=== PATIENT | female | born 2000 | race American Indian/Alaskan Native ===

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

== ENCOUNTER 2018-02-09 10:44 | Outpatient (CLI) | payer MEDICAID ==
[2018-02-09 12:52] LABS: Bacteria,Urine 1+ /HPF (Negative); Bilirubin,Urine NEG (Negative); Blood,Urine NEG (Negative); Color,Urine Straw (Yellow); Mucus,Urine FEW /HPF; Protein,Urine <15 mg/dL mg/dL (Negative); Urobilinogen,Urine < 2.0 mg/dL (<2.0)
[2018-02-09] MEDS ORDERED: LACTATED RINGERS 1,000 ML IV ONE (13:02)
== END 2018-02-09 15:47 | disposition home or self-care (01) ==
LOC: TRG 10:44
PROVIDERS: ATTEND Obstetrics & Gynecology
DX: O47.02 False labor before 37 completed weeks of gestation, second trimester (principal); Z3A.26 26 weeks gestation of pregnancy
CPT/HCPCS: 59025; 81001; J7120

== ENCOUNTER 2018-03-22 10:28 | Outpatient (CLI) | payer MEDICAID ==
[2018-03-22] MEDS ORDERED: LACTATED RINGERS 500 ML IV ONE (10:36)
--- NOTE | 2018-03-22 12:22 | Ultrasound Report ---
BIOPHYSICAL PROFILE: INDICATION: well being, IUGR. COMPARISON: None similar. TECHNIQUE: Transabdominal ultrasound with Doppler interrogation. 2 - breathing movements 2 - movements 2 - posture and tone 2 - Qualitative amniotic fluid volume 8 - TOTAL SCORE OF POSSIBLE 8 Heart Rate (bpm) 136 CONCLUSION: Findings, as above.
--- NOTE | 2018-03-22 12:24 | Ultrasound Report ---
ULTRASOUND OB VELOCIMETRY UMBILICAL ARTERY: HISTORY: well-being, IUGR. COMPARISON: None similar. FINDINGS: Transabdominal imaging with spectral Doppler interrogation. 3 separate segments of the cord were evaluated. heart rate measures 139 beats per minute. Free loop S/D ratio in the examined loops are 3.34, and 3.57 and 3.97 with average S/D ratio = 3.63. Normal waveform. Flow pattern is persistent. Free loop RI in the examined loops are 0.7, 0.72 and 0.75 with average RI= 0.72. Normal waveform. Flow pattern is persistent. CONCLUSION: Normal and persistent spectral waveforms are demonstrated throughout. The S/D ratio average measures 3.63. The resistive index average measures 0.72. Thank you for the opportunity to participate in this patient's care.
[2018-03-22 13:37] VITALS: BP 115/78
== END 2018-03-22 12:20 | disposition home or self-care (01) ==
LOC: TRG 10:28
PROVIDERS: ATTEND Obstetrics & Gynecology
DX: O47.03 False labor before 37 completed weeks of gestation, third trimester (principal); Z3A.32 32 weeks gestation of pregnancy
CPT/HCPCS: 59025; 76819; 76820

== ENCOUNTER 2018-04-12 15:05 | Outpatient (CLI) | payer MEDICAID ==
[2018-04-12] MEDS ORDERED: LACTATED RINGERS 500 ML IV ONE (15:29)
[2018-04-12 17:01] LABS: Bilirubin,Urine NEG (Negative); Blood,Urine NEG (Negative); Color,Urine Yellow (Yellow); Protein,Urine <15 mg/dL mg/dL (Negative); Urobilinogen,Urine < 2.0 mg/dL (<2.0)
[2018-04-12 17:13] VITALS: BP 109/56
--- NOTE | 2018-04-12 20:04 | Ultrasound Report ---
FINAL REPORT EXAM: US OB FOLLOW UP HISTORY: well being TECHNIQUE: Ultrasound obstetrical PRIORS: Comparison is dated November 10, 2017 FINDINGS: Single live intrauterine gestation is present in cephalic position The placenta is posterior and right Amniotic fluid is within limits amniotic fluid index 10.9 centimeters biometric measurements were obtained Biparietal diameter 33 weeks 3 days Head circumference 35 weeks 3 days abdominal circumference 33 weeks 0 days Femur length 32 weeks 5 days Composite gestational age today is 33 weeks 5 days Based on today's exam estimated weight is 2140 grams Growth percentile 80 percent IMPRESSION: Single live intrauterine gestation as described above
--- NOTE | 2018-04-12 20:04 | Ultrasound Report ---
FINAL REPORT EXAM: US OB BPP WO NON-STRESS HISTORY: well being TECHNIQUE: Ultrasound biophysical profile PRIORS: None. FINDINGS: Single live intrauterine gestation is present Biophysical profile was performed respiratory motion 2 Body movement 2 tone 2 Amniotic fluid volume 2 Total 05/12 Impression Normal biophysical profile 05/12
== END 2018-04-12 20:15 | disposition home or self-care (01) ==
LOC: TRG 15:05
PROVIDERS: ATTEND Obstetrics & Gynecology
DX: O47.03 False labor before 37 completed weeks of gestation, third trimester (principal); Z3A.33 33 weeks gestation of pregnancy
CPT/HCPCS: 59025; 76816; 76819; 81001; 96360; J7120

== ENCOUNTER 2018-05-04 15:42 | Inpatient (IN) | payer MEDICAID ==
[2018-05-04] MEDS ORDERED: LACTATED RINGERS 1,000 ML ONE (17:27)
[2018-05-04 18:47] LABS: Basophils # (Auto) 0.1 K/mm3 (0.0-0.1); Basophils % (Auto) 0.9 % (0.0-1.8); Eosinophils % (Auto) 0.1 % (0.0-4.3); Hematocrit 35.5 % (30.3-42.9); Hemoglobin 11.4 gm/dl (10.1-14.3); Lymphocytes % (Auto) 25.5 % (13.4-35.0); Mean Corpuscular HGB Conc 32 % (30-34); Mean Corpuscular Hemoglobin 26 pg (28-32); Mean Corpuscular Volume 81 fl (79-97); Monocytes # (Auto) 0.5 K/mm3 (0.0-0.8); Monocytes % (Auto) 6.8 % (0.0-7.3); Platelet Count 251 K/mm3 (140-440); Red Blood Count 4.36 M/mm3 (3.65-5.03)
[2018-05-04] MEDS ORDERED: PHENERGAN PR PRN (20:26)
[2018-05-04] MEDS ORDERED: NUBAIN IV PRN (20:26)
[2018-05-04] MEDS ORDERED: ZOFRAN IV PRN (20:26)
[2018-05-04] MEDS ORDERED: BRETHINE SUB-Q PRN (20:26)
[2018-05-04] MEDS ORDERED: ePHEDrine SULFATE IV PRN (20:26)
[2018-05-04] MEDS ORDERED: MINERAL OIL PO PRN (20:26)
[2018-05-04] MEDS ORDERED: STADOL IV PRN (20:26)
[2018-05-04] MEDS ORDERED: CERVIDIL VG ONE (20:26)
[2018-05-04] MEDS ORDERED: BRETHINE IVP PRN (20:26)
[2018-05-04] MEDS ORDERED: NARCAN 0.4 MG/1 ML IV PRN (20:26)
[2018-05-04] MEDS ORDERED: XYLOCAINE 2% INFILTRATI ONE (20:26)
[2018-05-04] MEDS ORDERED: LACTATED RINGERS 1,000 ML IV SCH (21:00)
[2018-05-04] MEDS ORDERED: PITOCin/NS 30 UNIT/500ML 30 UNITS/500 ML BAG IV SCH ×2 (21:00)
[2018-05-04] MEDS ORDERED: PITOCin/NS 20 UNIT/1000ML DRIP 20 UNITS/1,000 ML BAG IV SCH (21:00)
[2018-05-05] MEDS: LACTATED RINGERS 1,000 ML IV SCH ×4 (00:02→22:12)
--- NOTE | 2018-05-05 08:01 | History and Physical Report ---
History of Present Illness Date of examination: 05/05/18 Date of admission: 05/04/18 15:42 History of present illness: 17 yo LMP EDC 05/17/18 @ 38.2 weeks presented for admission per [facility] Dr Springer for IUGR ( EFW 4-12 lbs (7%), elevated S/d ratio and decreased KARIEN (9.8cm ). First trimester entry into care at 10 weeks gestation. Seen at [facility] 05/04, last growith scan noted 5lb for EFW and yesterday 4-12oz appreciated. course complicated by hyperemesis with hospital admit, asthma, abnormal quad, and Panorama for T-21, amnio declined. Comang't with [facility]. Following for genetic abnormality and IUGR. Evaluated by [facility] for heart evaluation and structurally normal heart, Normal echocardiogram, Normal LV, RV documented. GBS negative. 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 History: other (genital warts) Social history: no significant social history - Obstetrical History Expected Date of Delivery: 05/17/18 Actual Gestation: 38 Week(s) 2 Day(s) : 1 Medications and Allergies Allergies Allergy/AdvReac Type Severity Reaction Status Date / Time No Known Allergies Allergy Verified 11/09/17 03:23 Home Medications Medication Instructions Recorded Confirmed Last Taken Type Metoclopramide [Reglan] 10 mg PO ACHS 05/04/18 05/04/18 05/03/18 20:00 History Omeprazole 1 caplet PO TID 05/04/18 05/04/18 05/03/18 20:00 History Active Meds: Active Medications Butorphanol Tartrate (Stadol) 2 mg IV Q2H PRN PRN Reason: Pain , Severe (7-10) Ephedrine Sulfate (Ephedrine Sulfate) 10 mg IV Q2M PRN PRN Reason: Hypotension Fentanyl (Sublimaze) 100 mcg IV Q2H PRN PRN Reason: Labor Pain Lactated Ringer's (Lactated Ringers) 1,000 mls @ 125 mls/hr IV DIRECT CHICO Last Admin: 05/05/18 06:01 Dose: 125 mls/hr Oxytocin/Sodium Chloride (Pitocin/Ns 20 Unit/1000ml Drip) 20 units in 1,000 mls @ 125 mls/hr IV DIRECT CHICO Oxytocin/Sodium Chloride (Pitocin/Ns 30 Unit/500ml) 30 units in 500 mls @ 1 mls /hr IV TITR CHICO; Protocol Oxytocin/Sodium Chloride (Pitocin/Ns 30 Unit/500ml) 30 units in 500 mls @ 0 mls /hr IV TITR CHICO; Protocol Last Titration: 05/05/18 06:33 Dose: 4 mls/hr, 4 mls/hr Mineral Oil (Mineral Oil) 30 ml PO QHS PRN PRN Reason: Constipation Nalbuphine HCl (Nubain) 10 mg IV Q2H PRN PRN Reason: Pain, Moderate (4-6) Naloxone HCl (Narcan 0.4 Mg/1 Ml) 0.1 mg IV Q2MIN PRN PRN Reason: Res Rate </= 8 or 02 SAT < 92% Ondansetron HCl (Zofran) 4 mg IV Q8H PRN PRN Reason: Nausea And Vomiting Promethazine HCl (Phenergan) 25 mg ID Q6H PRN PRN Reason: N/V if unable to take po Terbutaline Sulfate (Brethine) 0.25 mg SUB-Q ONCE PRN PRN Reason: Hyperstimulation/Hypertonicity Terbutaline Sulfate (Brethine) 0.25 mg IVP ONCE PRN PRN Reason: Hyperstimulation/Hypertonicity - Vital Signs Vital signs: Vital Signs Pulse Pulse Ox 75 99 05/04/18 16:20 05/04/18 16:20 Temp Pulse Resp BP Pulse Ox 97.3 F L 63 18 122/60 99 05/05/18 03:20 05/05/18 07:35 05/05/18 03:20 05/05/18 07:35 05/05/18 06:08 - Physical Exam Breasts: Positive: deferred Abdomen: Positive: normal appearance, normal bowel sounds Vagina: Positive: normal moisture - Obstetrical FHR: category 1 Uterine Contraction Monitor Mode: External Cervical Dilatation: 1 Cervical Effacement Percentage: 40 station: -4 Uterine Contraction Pattern: Irregular Uterine Tone Measurement Phase: Resting Uterine Contraction Intensity: Moderate Results Result Diagrams: 05/04/18 18:00 Abnormal lab results 05/04/18 Range/Units 18:00 MCH 26 L (28-32) pg All other labs normal. Assessment and Plan A: IUP at term Induction of labor Day 1 Suspected T-21 Absent end flow IUGR Unfavorable Cervix P: Repeat Cervidil
[2018-05-05] MEDS ORDERED: CERVIDIL VG PRN (09:00)
--- NOTE | 2018-05-05 10:14 | Event Note ---
Date: 05/05/18 Late entry. Called to bedside by RN secondary to spontaneous rupture of membranes. FHT Category II tracing. SVE: /2. Low dose pitocin. Continue to monitor maternal and status.
[2018-05-05] MEDS: SUBLIMAZE IV PRN ×4 (12:57→22:07)
[2018-05-05] MEDS ORDERED: ePHEDrine SULFATE IV PRN (23:16)
[2018-05-05] MEDS ORDERED: NARCAN 2 MG/2 ML IV PRN (23:16)
--- NOTE | 2018-05-05 23:17 | Anesthesia Consultation ---
Anesthesia Consult and Med Hx Date of service: 05/05/18 - Airway Anesthetic Teeth Evaluation: Good ROM Head & Neck: Adequate Mental/Hyoid Distance: Adequate Mallampati Class: Class II Intubation Access Assessment: Probably Good - Pulmonary Exam CTA: Yes - Cardiac Exam Cardiac Exam: RRR - Pre-Operative Health Status ASA Pre-Surgery Classification: ASA2 Proposed Anesthetic Plan: Epidural, Spinal - Pulmonary Hx Smoking: No Hx Asthma: No COPD: No Hx Pneumonia: No - Cardiovascular System Hx Hypertension: No - Central Nervous System Hx Seizures: No Hx Psychiatric Problems: No - Endocrine Hx Renal Disease: No Hx End Stage Renal Disease: No Hx Hypothyroidism: No Hx Hyperthyroidism: No - Hematic Hx Anemia: No Hx Sickle Cell Disease: No - Other Systems Hx Alcohol Use: No
--- NOTE | 2018-05-05 23:18 | Anesthesia Day of Surgery ---
Anesthesia Day of Surgery - Day of Surgery Patient Examined: Yes Patient H&P Reviewed: Yes Patient is NPO: Yes
[2018-05-05] MEDS ORDERED: fentaNYL-BUPIV 2 MCG/ML-0.125% 200 MCG/100 ML BAG EPIDURAL SCH (23:45)
[2018-05-06] MEDS ORDERED: POLYCILLIN/NS 2 GM/100 ML 2 GM/100 ML BAG IV SCH (06:00)
[2018-05-06] MEDS ORDERED: REGLAN IV NR (08:00)
[2018-05-06] MEDS ORDERED: BRETHINE SUB-Q ONE ×2 (08:00→21:15)
[2018-05-06] MEDS ORDERED: BICITRA PO NR (08:00)
[2018-05-06] MEDS ORDERED: LACTATED RINGERS 1,000 ML IV SCH (08:00)
[2018-05-06] MEDS ORDERED: BICITRA ONE (08:01)
[2018-05-06] MEDS ORDERED: REGLAN ONE (08:01)
[2018-05-06] MEDS ORDERED: PEPCID IV ONE (08:01)
[2018-05-06] MEDS ORDERED: ANCEF/STERILE WATER 2 GM/20 ML 2 GM/20 ML SYRINGE IV ONE (08:01)
--- NOTE | 2018-05-06 08:15 | Progress Note ---
Assessment and Plan A: IUP at 38+ weeks Failed induction Remote from delivery intolerance to labor Suspected T-21 Prolonged ROM P: Primary section Subjective - Subjective Date of service: 05/06/18 Interval history: 17 yo LMP EDC 05/17/18 @ 38.2 weeks presented for admission per [facility] Dr Springer for IUGR ( EFW 4-12 lbs (7%), elevated S/d ratio and decreased KARINE (9.8cm ). First trimester entry into care at 10 weeks gestation. Seen at [facility] 05/04, last growith scan noted 5lb for EFW and yesterday 4-12oz appreciated. course complicated by hyperemesis with hospital admit, asthma, abnormal quad, and Panorama for T-21, amnio declined. Comang't with [facility]. Following for genetic abnormality and IUGR. Evaluated by [facility] for heart evaluation and structurally normal heart, Normal echocardiogram, Normal LV, RV documented. GBS negative. Patient reports: new complaints (Lower back pain at epidural site and lower abd pressure), loss of fluid, movement normal, contractions, no vaginal bleeding Objective - Vital Signs Vital Signs: Vital Signs - 12hr 05/05/18 05/05/18 05/05/18 21:06 22:07 22:35 Temperature Pulse Rate 68 76 Respiratory 20 Rate Blood Pressure 156/74 127/85 O2 Sat by Pulse Oximetry 05/05/18 05/05/18 05/05/18 23:00 23:01 23:06 Temperature Pulse Rate 87 81 81 Respiratory Rate Blood Pressure O2 Sat by Pulse 86 99 98 Oximetry 05/05/18 05/05/18 05/05/18 23:11 23:16 23:19 Temperature Pulse Rate 85 73 78 Respiratory Rate Blood Pressure 120/59 114/60 O2 Sat by Pulse 98 96 Oximetry 05/05/18 05/05/18 05/05/18 23:21 23:22 23:25 Temperature Pulse Rate 76 76 71 Respiratory Rate Blood Pressure 121/64 112/55 O2 Sat by Pulse 97 Oximetry 05/05/18 05/05/18 05/05/18 23:26 23:28 23:31 Temperature Pulse Rate 63 69 68 Respiratory Rate Blood Pressure 113/59 111/56 O2 Sat by Pulse 99 99 Oximetry 05/05/18 05/05/18 05/05/18 23:34 23:36 23:37 Temperature 98.7 F Pulse Rate 71 69 68 Respiratory Rate Blood Pressure 116/58 116/58 O2 Sat by Pulse 99 Oximetry 05/05/18 05/05/18 05/05/18 23:40 23:41 23:43 Temperature Pulse Rate 66 81 78 Respiratory Rate Blood Pressure 119/58 128/69 O2 Sat by Pulse 99 Oximetry 05/05/18 05/05/18 05/05/18 23:46 23:49 23:51 Temperature Pulse Rate 72 66 56 L Respiratory Rate Blood Pressure 126/67 112/57 O2 Sat by Pulse 99 99 Oximetry 05/05/18 05/05/18 05/05/18 23:52 23:55 23:56 Temperature Pulse Rate 71 57 L 65 Respiratory Rate Blood Pressure 113/59 116/63 O2 Sat by Pulse 99 Oximetry 05/05/18 05/06/18 05/06/18 23:58 00:01 00:04 Temperature Pulse Rate 67 73 65 Respiratory Rate Blood Pressure 118/69 119/65 124/67 O2 Sat by Pulse 98 Oximetry 05/06/18 05/06/18 05/06/18 00:06 00:07 00:10 Temperature Pulse Rate 68 64 68 Respiratory Rate Blood Pressure 126/72 116/64 O2 Sat by Pulse 98 Oximetry 05/06/18 05/06/18 05/06/18 00:11 00:13 00:16 Temperature Pulse Rate 66 71 65 Respiratory Rate Blood Pressure 113/62 109/59 O2 Sat by Pulse 98 98 Oximetry 05/06/18 05/06/18 05/06/18 00:19 00:21 00:22 Temperature Pulse Rate 72 61 71 Respiratory Rate Blood Pressure 132/64 123/65 O2 Sat by Pulse 100 Oximetry 05/06/18 05/06/18 05/06/18 00:25 00:26 00:28 Temperature Pulse Rate 63 68 67 Respiratory Rate Blood Pressure 114/66 118/63 O2 Sat by Pulse 98 Oximetry 05/06/18 05/06/18 05/06/18 00:31 00:34 00:36 Temperature Pulse Rate 69 64 66 Respiratory Rate Blood Pressure 125/70 113/60 O2 Sat by Pulse 99 99 Oximetry 05/06/18 05/06/18 05/06/18 00:37 00:40 00:41 Temperature Pulse Rate 64 67 73 Respiratory Rate Blood Pressure 118/61 120/64 O2 Sat by Pulse 99 Oximetry 05/06/18 05/06/18 05/06/18 00:43 00:46 00:49 Temperature Pulse Rate 72 72 75 Respiratory Rate Blood Pressure 108/67 114/71 120/74 O2 Sat by Pulse 100 Oximetry 05/06/18 05/06/18 05/06/18 00:51 00:52 00:56 Temperature Pulse Rate 67 61 66 Respiratory Rate Blood Pressure 110/62 O2 Sat by Pulse 99 99 Oximetry 05/06/18 05/06/18 05/06/18 01:01 01:03 01:06 Temperature Pulse Rate 68 65 68 Respiratory Rate Blood Pressure 121/57 O2 Sat by Pulse 99 99 Oximetry 05/06/18 05/06/18 05/06/18 01:11 01:16 01:21 Temperature Pulse Rate 69 67 66 Respiratory Rate Blood Pressure 129/63 O2 Sat by Pulse 99 99 97 Oximetry 05/06/18 05/06/18 05/06/18 01:22 01:26 01:31 Temperature Pulse Rate 69 65 69 Respiratory Rate Blood Pressure 121/70 O2 Sat by Pulse 99 98 Oximetry 05/06/18 05/06/18 05/06/18 01:36 01:38 01:41 Temperature Pulse Rate 67 66 67 Respiratory Rate Blood Pressure 121/60 O2 Sat by Pulse 98 98 Oximetry 05/06/18 05/06/18 05/06/18 01:46 01:51 01:52 Temperature Pulse Rate 69 66 67 Respiratory Rate Blood Pressure 119/55 O2 Sat by Pulse 97 98 Oximetry 05/06/18 05/06/18 05/06/18 01:56 02:01 02:06 Temperature Pulse Rate 66 68 65 Respiratory Rate Blood Pressure O2 Sat by Pulse 98 97 98 Oximetry 05/06/18 05/06/18 05/06/18 02:07 02:11 02:16 Temperature Pulse Rate 61 68 66 Respiratory Rate Blood Pressure 126/60 O2 Sat by Pulse 98 99 Oximetry 05/06/18 05/06/18 05/06/18 02:21 02:22 02:26 Temperature Pulse Rate 66 69 66 Respiratory Rate Blood Pressure 123/59 O2 Sat by Pulse 99 98 Oximetry 05/06/18 05/06/18 05/06/18 02:31 02:36 02:38 Temperature Pulse Rate 67 75 67 Respiratory Rate Blood Pressure 126/68 O2 Sat by Pulse 98 98 Oximetry 05/06/18 05/06/18 05/06/18 02:41 02:46 02:51 Temperature Pulse Rate 70 65 66 Respiratory Rate Blood Pressure O2 Sat by Pulse 98 99 99 Oximetry 05/06/18 05/06/18 05/06/18 02:53 02:56 03:01 Temperature Pulse Rate 82 71 70 Respiratory Rate Blood Pressure 117/66 O2 Sat by Pulse 96 99 Oximetry 05/06/18 05/06/18 05/06/18 03:06 03:08 03:11 Temperature Pulse Rate 65 67 68 Respiratory Rate Blood Pressure 116/63 O2 Sat by Pulse 99 99 Oximetry 05/06/18 05/06/18 05/06/18 03:16 03:21 03:22 Temperature Pulse Rate 66 67 78 Respiratory Rate Blood Pressure 118/64 O2 Sat by Pulse 99 99 Oximetry 05/06/18 05/06/18 05/06/18 03:26 03:31 03:36 Temperature Pulse Rate 71 76 79 Respiratory Rate Blood Pressure O2 Sat by Pulse 99 97 97 Oximetry 05/06/18 05/06/18 05/06/18 03:41 03:44 03:46 Temperature Pulse Rate 79 90 82 Respiratory Rate Blood Pressure O2 Sat by Pulse 97 94 96 Oximetry 05/06/18 05/06/18 05/06/18 03:51 03:56 03:58 Temperature Pulse Rate 77 75 71 Respiratory Rate Blood Pressure 110/60 O2 Sat by Pulse 96 96 Oximetry 05/06/18 05/06/18 05/06/18 04:01 04:06 04:11 Temperature Pulse Rate 75 75 82 Respiratory Rate Blood Pressure O2 Sat by Pulse 96 96 99 Oximetry 05/06/18 05/06/18 05/06/18 04:16 04:21 04:26 Temperature Pulse Rate 70 69 70 Respiratory Rate Blood Pressure O2 Sat by Pulse 99 99 99 Oximetry 05/06/18 05/06/18 05/06/18 04:28 04:31 04:36 Temperature Pulse Rate 69 69 68 Respiratory Rate Blood Pressure 117/60 O2 Sat by Pulse 99 99 Oximetry 05/06/18 05/06/18 05/06/18 04:41 04:46 04:51 Temperature Pulse Rate 68 71 71 Respiratory Rate Blood Pressure O2 Sat by Pulse 99 99 99 Oximetry 05/06/18 05/06/18 05/06/18 04:56 04:58 05:01 Temperature Pulse Rate 72 73 68 Respiratory Rate Blood Pressure 122/59 O2 Sat by Pulse 100 99 Oximetry 05/06/18 05/06/18 05/06/18 05:06 05:11 05:16 Temperature Pulse Rate 79 78 74 Respiratory Rate Blood Pressure O2 Sat by Pulse 99 99 99 Oximetry 05/06/18 05/06/18 05/06/18 05:21 05:26 05:29 Temperature Pulse Rate 73 77 75 Respiratory Rate Blood Pressure 130/73 O2 Sat by Pulse 99 98 Oximetry 05/06/18 05/06/18 05/06/18 05:31 05:36 05:41 Temperature Pulse Rate 77 74 69 Respiratory Rate Blood Pressure O2 Sat by Pulse 100 99 100 Oximetry 05/06/18 05/06/18 05/06/18 05:46 05:51 05:56 Temperature Pulse Rate 75 82 79 Respiratory Rate Blood Pressure O2 Sat by Pulse 99 99 99 Oximetry 05/06/18 05/06/18 05/06/18 05:58 06:01 06:06 Temperature Pulse Rate 76 70 78 Respiratory Rate Blood Pressure 130/76 O2 Sat by Pulse 99 99 Oximetry 05/06/18 05/06/18 05/06/18 06:11 06:16 06:21 Temperature Pulse Rate 79 75 74 Respiratory Rate Blood Pressure O2 Sat by Pulse 98 99 100 Oximetry 05/06/18 05/06/18 05/06/18 06:26 06:30 06:31 Temperature Pulse Rate 71 71 76 Respiratory Rate Blood Pressure 121/68 O2 Sat by Pulse 99 100 Oximetry 05/06/18 05/06/18 05/06/18 06:36 06:41 06:46 Temperature Pulse Rate 76 74 76 Respiratory Rate Blood Pressure O2 Sat by Pulse 98 99 99 Oximetry 05/06/18 05/06/18 05/06/18 06:51 06:56 06:58 Temperature Pulse Rate 77 75 71 Respiratory Rate Blood Pressure 122/59 O2 Sat by Pulse 99 99 Oximetry 05/06/18 05/06/18 05/06/18 07:01 07:06 07:11 Temperature Pulse Rate 75 70 74 Respiratory Rate Blood Pressure O2 Sat by Pulse 99 98 99 Oximetry 05/06/18 05/06/18 05/06/18 07:16 07:21 07:26 Temperature Pulse Rate 68 74 79 Respiratory Rate Blood Pressure O2 Sat by Pulse 99 99 99 Oximetry 05/06/18 05/06/18 05/06/18 07:30 07:31 07:36 Temperature Pulse Rate 77 80 74 Respiratory Rate Blood Pressure 141/58 O2 Sat by Pulse 100 99 Oximetry 05/06/18 05/06/18 05/06/18 07:41 07:46 07:51 Temperature Pulse Rate 74 89 87 Respiratory Rate Blood Pressure O2 Sat by Pulse 100 97 97 Oximetry 05/06/18 07:58 Temperature Pulse Rate 75 Respiratory Rate Blood Pressure 103/58 O2 Sat by Pulse Oximetry - Exam Breasts: deferred FHR: category 2 FHR comments: IUPC and FSE placed. Maternal position change for comfort. decel to 70's. 02 placed. Multiple position changes. Poor response. advised plan C/S Uterine Contraction Monitor Mode: External Uterine Contraction Pattern: Irregular Uterine Tone Measurement Phase: Resting Uterine Contraction Intensity: Moderate - Labs Labs: Abnormal Labs 05/04/18 18:00 MCH 26 L Laboratory Results - last 24 hr 05/04/18 18:00 RPR Nonreactive
[2018-05-06] MEDS ORDERED: XYLOCAINE MPF 2% ONE ×4 (08:18→09:02)
[2018-05-06] MEDS ORDERED: NACL 0.9% IR ONE (08:25)
[2018-05-06] MEDS ORDERED: WATER FOR IRRIG STERILE IR ONE (08:25)
[2018-05-06] MEDS ORDERED: DIPRIVAN 10 MG/ML IV ONE (08:28)
[2018-05-06] MEDS ORDERED: PEPCID IV NR (08:30)
[2018-05-06] MEDS ORDERED: PITOCin/NS 20 UNIT/1000ML DRIP 20 UNITS/1,000 ML BAG IV SCH ×2 (08:30→12:21)
[2018-05-06] MEDS ORDERED: METHERGINE IM ONE (08:37)
[2018-05-06] MEDS ORDERED: LACTATED RINGERS 1,000 ML ONE (09:02)
[2018-05-06] MEDS ORDERED: MORPHINE ONE (09:09)
[2018-05-06] MEDS ORDERED: ZOFRAN ONE (09:10)
--- NOTE | 2018-05-06 09:31 | Operative Report ---
Operative Report Operative Report: Date of procedure: May 06, 2018 Preoperative diagnosis: 1) IUP at 38w3d 2) Nonreassuring Tracing- repetitive variable decels 3) Intolerance to Labor 4) IUGR 5) Prolonged ROM Postoperative diagnosis: Same Procedure: Primary low transverse section Surgeon: Christine Dejesus M.D. Anesthesia: Epidural Findings: 1) Viable male , Apgars 8 and 9, weight 2038g, (4 lb 7.8 oz) in vertex presentation 2) Normal-appearing uterus ovaries and tubes Estimated blood loss: 500 mL IV fluids: 1200 mL Urine output: 350 mL, clear at the end of the procedure Drains: Anton to gravity Specimens: Placenta to pathology Complications: None. Counts correct x 3 Medication: Methergine 0.2 mg IM Disposition: Stable to PACU Indication for procedure: Pt is a 17 year old female primigravida at 38w3d who was initially admitted for induction of labor secondary to IUGR and elevated S/D ratio. Over 24 hrs of induction, her cervix changed from 1 to 2 cm, and the heart tracing began to have repetitive variable decels. The decision was made to proceed with delivery. Operation in detail: After the risks, benefits, alternatives and complications were explained to the patient she gave informed consent for the procedure. She was subsequently taken to the operating room where epidural anesthesia was initially inadequate. The patient's epidural was again redosed, and it was then noted to be adequate. She was subsequently placed in the dorsal supine position with leftward tilt and prepped and draped in a normal sterile fashion. heart tones were noted to be in the 120s prior to incision. A timeout was performed. A Pfannenstiel skin incision was made with the knife and carried down to the layer of the fascia with the Bovie. The fascia was incised in the midline and the fascial incision was extended bilaterally with the Bovie. Attention was then turned to the superior aspect of the incision which was grasped with two Kochers, tented up, and dissected off the rectus muscles. Attention was then turned to the inferior aspect of the incision which was grasped with two Kochers , tented up and dissected off the rectus muscles. The rectus muscles were then in the midline. The peritoneum was then entered bluntly. The peritoneal incision was extended with good visualization of the bladder. The peritoneal incision was then stretched. The bladder blade was placed. The vesicouterine peritoneum was grasped with smooth pickups and incised with Metzenbaum scissors. Metzenbaum scissors were used to extend the incision bilaterally. The bladder flap was then created digitally and the bladder blade was replaced. A transverse incision was made in the lower uterine segment with a knife and extended bilaterally with the bandage scissors. The head was delivered without difficulty followed by shoulders and body. was bulb suctioned at delivery. The cord was clamped and cut and the was handed to NICU staff in attendance. Cord blood was collected. The placenta was then delivered manually. The uterus was then exteriorized and cleared of all clots and debris. The uterus was noted to be atonic despite pitocin administration. The patient was given Methergine 0.2 mg IM with improve in uterine tone. The hysterotomy was then reapproximated with 0 Vicryl in a running locked fashion. A second layer of the same suture was used in an imbricating fashion. The hysterotomy was inspected and hemostasis was noted. The gutters were irrigated and cleared of all clots and debris. The hysterotomy was again inspected and noted to be hemostatic. Surgicel was placed over the hysterotomy. The peritoneum was reapproximated with 2-0 Vicryl in a running fashion incorporating the rectus muscles. The fascia was reapproximated with 0 Vicryl in a running fashion. The subcutaneous tissue was reapproximated with 3-0 Vicryl in a running fashion. The skin was reapproximated with 4-0 Vicryl in a subcuticular fashion. The incision was then covered with steri strips and a pressure dressing. The procedure was then ended. The patient tolerated the procedure well and was taken to the PACU in stable condition. All instrument, lap, and needle counts were correct 3.
--- NOTE | 2018-05-06 09:31 | Procedure Note ---
OB Delivery Note - Delivery Date of Delivery: 05/06/18 Surgeon: MONICA OROZCO Estimated blood loss: 500cc - Section Preop diagnosis: nonreassuring FHR tracing Postop diagnosis: same section procedure: section, primary low transverse Disposition: PACU Complications: none Narrative: Please see operative report - A at 1 minute: 8 at 5 minutes: 9 Infant Gender: Male (2038g (4lb 7.8 oz) @ 0829 am)
[2018-05-06] MEDS ORDERED: PHENERGAN PO PRN (10:00)
[2018-05-06] MEDS ORDERED: PHENERGAN PR PRN (10:00)
[2018-05-06] MEDS ORDERED: ZOFRAN IV PRN ×2 (10:00→12:21)
[2018-05-06] MEDS ORDERED: SODIUM CHLORIDE FLUSH SYRINGE 10 ML IV PRN (10:00)
[2018-05-06] MEDS: DILAUDID IV PRN ×4 (10:10→21:07)
[2018-05-06] MEDS ORDERED: DILAUDID ONE (11:03)
[2018-05-06] MEDS: TORADOL IV SCH ×2 (11:24→18:59)
[2018-05-06] MEDS ORDERED: TORADOL IV PRN (12:21)
[2018-05-06] MEDS ORDERED: MILK OF MAGNESIA PO PRN (12:21)
[2018-05-06] MEDS ORDERED: LANSINOH TP PRN (12:21)
[2018-05-06] MEDS ORDERED: TUCKS PAD TP PRN (12:21)
[2018-05-06] MEDS ORDERED: SODIUM CHLORIDE FLUSH SYRINGE 10 ML IV NR (12:21)
[2018-05-06] MEDS ORDERED: NARCAN 0.4 MG/1 ML IV PRN (12:21)
[2018-05-06] MEDS ORDERED: MYLICON PO PRN (12:21)
[2018-05-06] MEDS: D5LR 1,000 ML IV SCH ×2 (14:18→23:20)
[2018-05-06] MEDS: ANCEF/NS 1 GM/50 ML 1 GM/50 ML BAG IV SCH (17:08)
[2018-05-06 21:34] LABS: Hematocrit 29.9 % (30.3-42.9); Hemoglobin 9.6 gm/dl (10.1-14.3)
[2018-05-06] MEDS: PERCOCET 5/325 PO PRN (23:19)
[2018-05-07] MEDS: TORADOL IV SCH ×2 (00:25→06:26)
[2018-05-07] MEDS: PERCOCET 5/325 PO PRN ×3 (03:11→18:06)
[2018-05-07] MEDS: ANCEF/NS 1 GM/50 ML 1 GM/50 ML BAG IV SCH (03:12)
--- NOTE | 2018-05-07 07:39 | Progress Note ---
Assessment and Plan A: POD#1 s/p primary section at term Asymptomatic anemia P: Routine post op care. Subjective - Subjective Date of service: 05/07/18 Principal diagnosis: s/p primary section Interval history: During the day yesterday, the baby was moved to the NICU. No overnight events. Suboptimal pain control. Patient reports: appetite normal, voiding normally, pain poorly controlled, ambulating normally, no flatus, no bowel movement [place]: in NICU Objective - Vital Signs Latest vital signs: Vital Signs Temp Pulse Resp BP BP Pulse Ox 05/07/18 06:26 16 05/07/18 03:11 16 05/07/18 01:35 98.1 F 70 18 124/51 05/07/18 00:25 18 05/06/18 23:19 20 05/06/18 20:19 98.3 F 91 H 20 137/78 05/06/18 19:40 97 H 22 120/69 05/06/18 16:19 97.7 F 91 H 18 125/63 95 05/06/18 12:09 98.6 F 90 16 111/65 96 05/06/18 11:31 95 H 13 124/66 05/06/18 11:25 97 H 11 L 133/64 05/06/18 11:19 96 H 12 132/70 05/06/18 11:13 96 H 19 128/71 05/06/18 11:07 98 H 18 142/73 05/06/18 11:01 103 H 18 134/79 96 05/06/18 10:55 98 H 22 145/81 96 05/06/18 10:49 97 H 11 L 137/82 96 05/06/18 10:43 99 H 17 135/81 96 05/06/18 10:37 97 H 23 137/85 97 05/06/18 10:32 95 H 12 129/84 98 05/06/18 10:30 92 H 20 129/79 100 05/06/18 10:27 93 H 23 131/83 98 05/06/18 10:21 93 H 15 129/78 98 05/06/18 10:15 90 18 129/79 98 05/06/18 10:10 20 05/06/18 10:00 90 25 H 132/73 100 05/06/18 09:50 93 H 17 128/47 05/06/18 09:45 99 H 16 128/50 05/06/18 09:35 97 H 22 120/69 05/06/18 09:31 97.9 F 102 H 17 138/56 05/06/18 09:30 105 H 17 138/56 99 05/06/18 08:48 98.1 F 18 05/06/18 07:58 75 103/58 05/06/18 07:51 87 97 05/06/18 07:46 89 97 05/06/18 07:41 74 100 Intake and Output 05/06/18 05/07/18 05/07/18 22:59 06:59 14:59 Intake Total 1230 Output Total 600 400 Balance 630 -400 Intake: IV 1050 ANCEF/NS 1 GM/50 ML 1 gm 50 In 50 ml @ 100 mls/hr IV Q8H [facility] Rx#:[id number] D5lr 1,000 ml @ 125 mls/ 1000 hr IV DIRECT [facility] Rx#: [id number] Intake, Free Water 180 Output: Urine 600 400 Void 600 400 Other: Intake, Other Source Saline Solution Total, Output Amount 600 400 - Exam Breasts: Present: deferred Cardiovascular: Present: Regular rate Lungs: Present: Clear to auscultation Abdomen: Present: soft Uterus: Present: fundal height at umbilicus Extremities: Present: normal Incision: Present: dressed - Labs Labs: Abnormal lab results 05/06/18 Range/Units 21:07 Hgb 9.6 L (10.1-14.3) gm/dl Hct 29.9 L (30.3-42.9) %
[2018-05-07] MEDS ORDERED: BOOSTRIX IM ONE (09:35)
[2018-05-07] MEDS ORDERED: M-M-R II VACCINE SUB-Q ONE (09:35)
--- NOTE | 2018-05-07 09:50 | Query-Anemia ---
Darrick Kraus____Oleg Date:____05/07/18 Elementary Teacher/CDS:___abhinav Phone#:___[phone] Exercise your independent professional judgment when responding to this query. Questions asked do not imply a particular answer is desired or expected. We greatly appreciate your clarification on this issue. Clinical Documentation States: 17 yo LMP EDC 05/17/18 @ 38.2 weeks presented for admission per [facility] Dr Springer for IUGR ( EFW 4-12 lbs (7%), elevated S/d ratio and decreased KARINE (9.8cm ). Taken from operative report () on 05/06/18. Preoperative diagnosis: 1) IUP at 38w3d 2) Nonreassuring Tracing- repetitive variable decels 3) Intolerance to Labor 4) IUGR 5) Prolonged ROM Postoperative diagnosis: Same Procedure: Primary low transverse section Estimated blood loss: 500 mL Clinical Findings Show: 05/04/18 05/06/18 Hb 11.4 9.6 Hct 35.5 29.9 Etiology: [X ] Anemia due to acute blood loss [ ] Anemia due to chronic blood loss [ ] Anemia secondary to ESRD [ ] Anemia secondary to neoplastic disease [ ] Iron deficiency anemia due to malabsorption [ ] GI Bleed from: [ ] Anemia of chronic disease ,Other: [ ] Precipitous Drop in Hemoglobin [ ] Precipitous Drop in Hematocrit [ ] Other: [ ] Unable to determine [ ] Comment/Explanation: Present on Admission: [ ] Yes (Y) [ ] Clinically undeterminable (W) [X ] No (N) Please also document response in your Progress Notes and/or Discharge Summary and indicate if the condition was present on admission. MTDD
[2018-05-07] MEDS: MILK OF MAGNESIA PO SCH (10:11)
[2018-05-07] MEDS: MOTRIN PO PRN (18:05)
[2018-05-07] MEDS: BENADRYL IV PRN (19:27)
[2018-05-07] MEDS: CLARITIN PO SCH (22:24)
[2018-05-08] MEDS: MOTRIN PO PRN ×4 (01:18→23:56)
[2018-05-08] MEDS: MILK OF MAGNESIA PO SCH ×4 (01:18→22:12)
[2018-05-08] MEDS: BENADRYL IV PRN (04:37)
[2018-05-08] MEDS: PERCOCET 5/325 PO PRN ×4 (04:38→22:08)
[2018-05-08] MEDS: TORADOL IV SCH ×2 (06:13)
[2018-05-08] MEDS: CLARITIN PO SCH (10:24)
--- NOTE | 2018-05-08 12:48 | Progress Note ---
Assessment and Plan O: VSS Af PP H/H:11.3/32.8 A: Stable POD #2 P: Continue routine PP orders Subjective - Subjective Date of service: 05/08/18 Principal diagnosis: s/p primary section Interval history: 17 yo LMP EDC 05/17/18 @ 38.2 weeks presented for admission per [facility] Dr Springer for IUGR ( EFW 4-12 lbs (7%), elevated S/d ratio and decreased KARINE (9.8cm ). First trimester entry into care at 10 weeks gestation. Seen at [facility] 05/04, last growith scan noted 5lb for EFW and yesterday 4-12oz appreciated. course complicated by hyperemesis with hospital admit, asthma, abnormal quad, and Panorama for T-21, amnio declined. Comang't with [facility]. Following for genetic abnormality and IUGR. Evaluated by [facility] for heart evaluation and structurally normal heart, Normal echocardiogram, Normal LV, RV documented. GBS negative. Patient reports: appetite normal, voiding normally, pain well controlled, flatus , ambulating normally, other (c/o incision burning) : doing well, in NICU (low BS) Objective - Vital Signs Latest vital signs: Vital Signs Temp Pulse Resp BP BP Pulse Ox 05/08/18 07:42 97.8 F 72 18 112/55 97 05/08/18 06:13 18 05/08/18 05:38 18 05/08/18 04:38 18 05/08/18 04:00 98.4 F 67 18 114/78 05/08/18 02:18 18 05/08/18 01:18 18 05/08/18 00:00 98.7 F 67 16 121/73 05/07/18 20:27 98.2 F 85 18 123/63 05/07/18 19:06 18 05/07/18 19:05 18 05/07/18 18:28 98.1 F 83 18 120/67 96 05/07/18 18:06 20 05/07/18 18:05 20 05/07/18 13:32 98.0 F 79 18 118/64 98 Intake and Output 05/07/18 05/08/18 05/08/18 22:59 06:59 14:59 Intake Total 365 600 665 Balance 365 600 665 Intake: IV 125 125 Left Hand 125 125 Oral 380 Intake, Free Water 240 600 160 Other: Total, Intake Amount 380 # Voids Void 1 1 - Exam Breasts: Present: deferred Abdomen: Present: normal appearance, soft Uterus: Present: normal, firm, fundal height below umbilicus. Absent: bogginess Extremities: Present: normal
[2018-05-09] MEDS: MOTRIN PO PRN (05:37)
[2018-05-09] MEDS: PERCOCET 5/325 PO PRN ×3 (09:00→19:50)
[2018-05-09] MEDS: MILK OF MAGNESIA PO SCH ×2 (09:00→14:08)
[2018-05-09] MEDS: CLARITIN PO SCH (09:00)
[2018-05-09] MEDS: TORADOL IV SCH ×2 (12:00→18:58)
--- NOTE | 2018-05-09 15:58 | Progress Note ---
Assessment and Plan O: VSS AF A: stable POD #4 Anemia p: D/C am Subjective - Subjective Date of service: 05/09/18 Principal diagnosis: s/p primary section Interval history: 17 yo LMP EDC 05/17/18 @ 38.2 weeks presented for admission per [facility] Dr Springer for IUGR ( EFW 4-12 lbs (7%), elevated S/d ratio and decreased KARINE (9.8cm ). First trimester entry into care at 10 weeks gestation. Seen at [facility] 05/04, last growith scan noted 5lb for EFW and yesterday 4-12oz appreciated. course complicated by hyperemesis with hospital admit, asthma, abnormal quad, and Panorama for T-21, amnio declined. Comang't with [facility]. Following for genetic abnormality and IUGR. Evaluated by [facility] for heart evaluation and structurally normal heart, Normal echocardiogram, Normal LV, RV documented. GBS negative. Patient reports: appetite normal, voiding normally, pain well controlled, flatus , ambulating normally [place]: doing well, in NICU Objective - Vital Signs Latest vital signs: Vital Signs Temp Pulse Resp BP BP Pulse Ox 05/09/18 07:47 98.2 F 68 18 122/63 97 05/09/18 01:00 98 F 74 18 114/79 05/08/18 16:21 98.4 F 75 18 107/84 98 Intake and Output 05/09/18 05/09/18 05/09/18 06:59 14:59 22:59 Intake Total 300 Balance 300 Intake: Intake, Free Water 300 - Exam Breasts: Present: deferred Abdomen: Present: normal appearance, soft. Absent: distention, tenderness Uterus: Present: normal, firm, fundal height below umbilicus. Absent: bogginess , tenderness Extremities: Present: normal. Absent: edema Incision: Present: normal, dry, intact, other (steri strips present)
--- NOTE | 2018-05-09 16:00 | Discharge Summary ---
Providers - Providers Date of Admission: 05/04/18 15:42 Date of discharge: 05/09/18 Attending physician: LENY NGUYEN MD 05/06/18 12:21 Consult to Associate Agent [employer] [CONS] Routine Reason For Exam: Primary care physician: LENY NGUYEN MD Hospitalization Reason for admission: induction of labor (IUGR, low KARINE, absent diastolic flow, suspected T-21), IUP at term Delivery: Procedure: primary low transverse Episiotomy: none Laceration: none Incision: normal, dry, intact complications: none Discharge diagnosis: IUP at term delivered [place] baby: male Condition at discharge: Good Disposition: DC- TO HOME OR SELFCARE Plan - Discharge Medications Prescriptions: Ferrous Sulfate [Feosol 325 MG tab] 325 mg PO BID #60 tablet Ibuprofen [Motrin] 800 mg PO Q8HR PRN #30 tablet PRN Reason: Pain , Severe (7-10) oxyCODONE /ACETAMINOPHEN [Percocet 5/325] 1 tab PO Q6HR PRN #40 tablet PRN Reason: Pain - Provider Discharge Summary Activity: routine, no sex for 6 weeks, no heavy lifting 4 weeks, no strenuous exercise Diet: routine Instructions: routine Additional instructions: [] Smoking cessation referral if applicable(refer to patient education folder for contact #) [] Refer to [facility]'s [facility] Booklet Call your doctor immediately for: * Fever > 100.5 * Heavy vaginal bleeding ( >1 pad per hour) * Severe persistent headache * Shortness of breath * Reddened, hot, painful area to leg or breast * Drainage or odor from incision. * Keep incision clean and dry at all times and follow doctor's instructions regarding bathing/showering - Follow up plan Follow up: LENY NGUYEN MD [Primary Care Provider] - 14 Days (RTO for incision check)
[2018-05-10] MEDS: PERCOCET 5/325 PO PRN ×3 (00:35→11:51)
[2018-05-10 09:11] VITALS: BP 122/67
[2018-05-10] MEDS: CLARITIN PO SCH (11:51)
[2018-05-10] MEDS: MOTRIN PO PRN (11:51)
== END 2018-05-10 14:30 | disposition home or self-care (01) | DRG 765 ==
LOC: LD 15:42 → OB 05-06 10:42
PROVIDERS: ADMIT Obstetrics & Gynecology; ATTEND Obstetrics & Gynecology
PROC: 10H07YZ Insertion of Other Device into Products of Conception, Via Natural or Artificial Opening (ICD-10-PCS; 2018-05-04)
PROC: 10H073Z Insertion of Monitoring Electrode into Products of Conception, Via Natural or Artificial Opening (ICD-10-PCS; 2018-05-04)
PROC: 4A1HXCZ Monitoring of Products of Conception, Cardiac Rate, External Approach (ICD-10-PCS; 2018-05-04)
PROC: 10D00Z1 Extraction of Products of Conception, Low, Open Approach (ICD-10-PCS; principal; 2018-05-06)
DX: O36.5930 Maternal care for other known or suspected poor fetal growth, third trimester, not applicable or unspecified (principal); O99.52 Diseases of the respiratory system complicating childbirth; J45.909 Unspecified asthma, uncomplicated; Z3A.38 38 weeks gestation of pregnancy; Z37.0 Single live birth; O76 Abnormality in fetal heart rate and rhythm complicating labor and delivery; O61.0 Failed medical induction of labor; D62 Acute posthemorrhagic anemia; O99.03 Anemia complicating the puerperium
CPT/HCPCS: 36415; 59200; 85014; 85018; 85025; 86592; 86850; 86900; 86901; 88307; J0290; J0595; J0690; J1170; J1200; J1885; J2210; J2270; J2405; J2590; J2704; J2765; J3010; J3105; J7120; J7121